=== PATIENT | male | born 2000 | race Hispanic/Latino ===

== ENCOUNTER 2021-07-30 21:17 | Emergency (ER) | payer OTHER ==
[2021-07-30 23:17] LABS: Absolute Lymphocytes (CBC) 2.1 K/uL (0.7-4.9); Hematocrit 44.6 % (39.6-49.0); MPV 7.2 fL (7.6-11.3); RBC Red Blood Cell Count 4.91 M/uL (4.33-5.43)
[2021-07-30 23:27] LABS: ALT/SGPT 31 U/L (12-78); AST/SGOT 17 U/L (15-37); Albumin 4.2 g/dL (3.4-5.0); Alkaline Phosphatase 86 U/L (45-117); BUN Blood Urea Nitrogen 15 mg/dL (7-18); Bicarbonate 27 mmol/L (21-32); Bilirubin Total 0.3 mg/dL (0.2-1.0); Glucose Level 102 mg/dL (74-106); Lipase 122 U/L (73-393); Potassium 3.8 mmol/L (3.5-5.1); Protein, Total 7.9 g/dL (6.4-8.2); Sodium Level 139 mmol/L (136-145)
[2021-07-30 23:31] LABS: Bilirubin Direct < 0.1 mg/dL (0-0.2)
--- NOTE | 2021-07-31 02:45 | ER ---
Nurse's Notes [facility] Name: Rossy Zamudio Age: 21 yrs Sex: Male : 2000 Arrival Date: 07/30/2021 Time: 21:20 Bed 17 Private MD: Diagnosis: Upper abdominal pain, unspecified Presentation: 07/30 21:43 Chief complaint: Patient states: "For the past 2 weeks, every time I eat I throw up. My ab2 stomach hurts too." Pt c/o N/V/D and abdominal pain in all 4 quadrants. Coronavirus screen: Vaccine status: Patient reports receiving the 2nd dose of the covid vaccine. Client denies travel out of the [place] in the last 14 days. At this time, the client does not indicate any symptoms associated with coronavirus-19. Coronavirus screen: diarrhea, nausea, vomiting. Client presents with at least one sign or symptom that may indicate coronavirus-19. Standard/surgical mask placed on the client. Provider contacted for isolation considerations. Ebola Screen: Patient negative for fever greater than or equal to 101.5 degrees Fahrenheit, and additional compatible Ebola Virus Disease symptoms Patient denies exposure to infectious person. Patient denies travel to an Ebola-affected area in the 21 days before illness onset. No symptoms or risks identified at this time. Initial Sepsis Screen: Does the patient meet any 2 criteria? No. Patient's initial sepsis screen is negative. Does the patient have a suspected source of infection? No. Patient's initial sepsis screen is negative. Risk Assessment: Do you want to hurt yourself or someone else? Patient reports no desire to harm self or others. Onset of symptoms is unknown. 21:43 Method Of Arrival: Ambulatory ab2 21:43 Acuity: STIVEN 3 ab2 Triage Assessment: 21:46 General: Appears in no apparent distress. comfortable, Behavior is calm, cooperative, ab2 appropriate for age. Pain: Complains of pain in abdomen. GI: Reports lower abdominal pain, upper abdominal pain, diarrhea, intolerance of fluids, intolerance of food, nausea, vomiting. Historical: - Allergies: 21:46 Ibuprofen; ab2 - PMHx: 21:46 None; ab2 - PSHx: 21:46 None; ab2 - Immunization history:: Adult Immunizations up to date. - Social history:: Smoking status: Patient denies any tobacco usage or history of. Screenin:20 Abuse screen: Denies threats or abuse. Nutritional screening: No deficits noted. sv1 Tuberculosis screening: No symptoms or risk factors identified. Fall Risk None identified. Assessment: 07/31 00:43 GI: Abdomen is flat. sv1 00:44 Reassessment: The patient is resting quietly. No acute abd distress. . sv1 Vital Signs: 07/30 21:43 BP 148 / 92; Pulse 97; Resp 18; Temp 98.8(TE); Pulse Ox 99% ; Weight 81.65 kg; Height 5 ab2 ft. 6 in. (167.64 cm); Pain 3/10; 22:20 BP 143 / 86 LA Sitting (auto/); Pulse 87 MON; Resp 16 S; Temp 97.8; Pulse Ox 100% on sv1 R/A; Weight 81.65 kg; Height 5 ft. 1 in. (154.94 cm); Pain 2/10; 07/31 00:39 BP 142 / 65 LA Sitting (auto/reg); Pulse 88 MON; Resp 16 S; Pulse Ox 98% on R/A; sv1 03:02 BP 106 / 66 LA Supine (auto/reg); Pulse 109 MON; Resp 16 S; Temp 97.9(O); Pulse Ox 99% sv1 on R/A; Pain 2/10; 07/30 22:20 Body Mass Index 34.01 (81.65 kg, 154.94 cm) sv1 ED Course: 07/30 21:20 Patient arrived in ED. ja2 21:26 Bessy Pierce FNP-C [facility]. kb 21:26 Stuart Pringle MD is Attending Physician. kb 21:46 Triage completed. ab2 21:46 Arm band placed on right wrist. ab2 22:07 Beto Phillips, BERT is Primary Nurse. sv1 22:20 Patient has correct armband on for positive identification. Placed in gown. Bed in low sv1 position. Call light in reach. Side rails up X2. 23:00 CBC with Diff Sent. sv1 23:00 Hepatic Function Sent. sv1 23:00 Basic Metabolic Panel Sent. sv1 23:00 Lipase Sent. sv1 07/31 00:51 US Abdomen Limited In Process Unspecified. EDMS 03:04 No provider procedures requiring assistance completed. IV discontinued. sv1 Administered Medications: No medications were administered Outcome: 02:45 Discharge ordered by MD. marie 03:04 Discharged to home ambulatory. sv1 03:04 Condition: good 03:04 Discharge instructions given to patient, Prescriptions given X 2. 03:05 Patient left the ED. sv1 Signatures: Dispatcher [employer] EDID Bessy Pierce, BRENTC RUBBER PRESS OPERATOR-Melanie Graham Steven, RN RN sv1 Aamir Ho2 Corrections: (The following items were deleted from the chart) 07/30 21:46 21:46 Allergies: No Known Allergies; ab2 ab2
--- NOTE | 2021-07-31 02:45 | EDPHYS ---
Physician Documentation [facility] Name: Rossy Zamudio Age: 21 yrs Sex: Male : 2000 Arrival Date: 07/30/2021 Time: 21:20 Bed 17 Private MD: ED Physician Stuart Pringle HPI: 07/30 22:11 This 21 yrs old Male presents to ER via Ambulatory with complaints of Nausea/Vomiting, kb Abdominal Pain. 22:11 The patient presents to the emergency department with nausea, vomiting, diarrhea, kb abdominal pain. Onset: The symptoms/episode began/occurred 2 week(s) ago. Possible causes: unknown. The symptoms are aggravated by food , The symptoms are alleviated by nothing. Associated signs and symptoms: Pertinent positives: abdominal pain, diarrhea, nausea, vomiting. Severity of symptoms: At their worst the symptoms were moderate in the emergency department the symptoms are unchanged. The patient has not experienced similar symptoms in the past. The patient has not recently seen a physician. 22:11 Pt reports n/v/d and upper abd pain that has been intermittent for 2 weeks. States the kb pain and nausea comes on after eating. Denies fever/chills. Historical: - Allergies: 21:46 Ibuprofen; ab2 - PMHx: 21:46 None; ab2 - PSHx: 21:46 None; ab2 - Immunization history:: Adult Immunizations up to date. - Social history:: Smoking status: Patient denies any tobacco usage or history of. ROS: 22:10 Constitutional: Negative for fever, chills, and weight loss. kb 22:10 Abdomen/GI: Positive for abdominal pain, nausea, vomiting, and diarrhea, Negative for constipation. 22:10 All other systems are negative. Exam: 22:10 Constitutional: This is a well developed, well nourished patient who is awake, alert, kb and in no acute distress. Head/Face: Normocephalic, atraumatic. ENT: Moist Mucous membranes Cardiovascular: Regular rate and rhythm with a normal S1 and S2. No gallops, murmurs, or rubs. No pulse deficits. Respiratory: Respirations even and unlabored. No increased work of breathing. Talking in full sentences Skin: Warm, dry with normal turgor. Normal color. MS/ Extremity: Pulses equal, no cyanosis. Neurovascular intact. Full, normal range of motion. Neuro: Awake and alert, GCS 15, oriented to person, place, time, and situation. Moves all extremities. Normal gait. Psych: Awake, alert, with orientation to person, place and time. Behavior, mood, and affect are within normal limits. 22:10 Abdomen/GI: Inspection: abdomen appears normal, Bowel sounds: normal, in all quadrants, Palpation: soft, in all quadrants, mild abdominal tenderness, in the right upper quadrant. Vital Signs: 21:43 BP 148 / 92; Pulse 97; Resp 18; Temp 98.8(TE); Pulse Ox 99% ; Weight 81.65 kg; Height 5 ab2 ft. 6 in. (167.64 cm); Pain 08/12; 22:20 BP 143 / 86 LA Sitting (auto/); Pulse 87 MON; Resp 16 S; Temp 97.8; Pulse Ox 100% on sv1 R/A; Weight 81.65 kg; Height 5 ft. 1 in. (154.94 cm); Pain 07/15; 07/31 00:39 BP 142 / 65 LA Sitting (auto/reg); Pulse 88 MON; Resp 16 S; Pulse Ox 98% on R/A; sv1 03:02 BP 106 / 66 LA Supine (auto/reg); Pulse 109 MON; Resp 16 S; Temp 97.9(O); Pulse Ox 99% sv1 on R/A; Pain 07/15; 07/30 22:20 Body Mass Index 34.01 (81.65 kg, 154.94 cm) sv1 MDM: 07/30 21:51 Patient medically screened. 22:01 Data reviewed: vital signs, nurses notes. Data interpreted: Pulse oximetry: on room air kb is 99 %. Interpretation: normal. 07/31 02:42 Counseling: I had a detailed discussion with the patient and/or guardian regarding: the historical points, exam findings, and any diagnostic results supporting the discharge/admit diagnosis, lab results, radiology results, the need for outpatient follow up, a general surgeon, a lumber tailer, to return to the emergency department if symptoms worsen or persist or if there are any questions or concerns that arise at home. 02:44 Data reviewed: I have discussed the patient's presentation/case with the attending Emergency Department Physician;. 02/25 21:52 Order name: Basic Metabolic Panel; Complete Time: 23:33 kb 07/30 21:52 Order name: CBC with Diff; Complete Time: 23:23 kb 07/30 21:52 Order name: Hepatic Function; Complete Time: 23:33 kb 07/30 21:52 Order name: Lipase; Complete Time: 23:33 kb 07/30 21:52 Order name: IV Saline Lock; Complete Time: 22:41 kb 07/30 22:10 Order name: US Abdomen Limited kb 07/30 21:52 Order name: Labs collected and sent; Complete Time: 22:42 kb Administered Medications: No medications were administered Disposition: 04:14 Co-signature as Attending Physician, Stuart Pringle MD. [email or web address] Disposition Summary: 07/31/21 02:45 Discharge Ordered Location: Home kb Condition: Stable kb Diagnosis - Upper abdominal pain, unspecified kb Followup: kb - With: Emergency Department - When: As needed - Reason: Worsening of condition Followup: kb - With: Private Physician - When: 2 - 3 days - Reason: Recheck today's complaints, Continuance of care, Re-evaluation by your physician Discharge Instructions: - Discharge Summary Sheet kb - Abdominal Pain, Adult, [id number] kb Forms: - Medication Reconciliation Form kb - Thank You Letter kb - Antibiotic Education kb - Prescription Opioid Use kb Prescriptions: - Zofran 4 mg Oral Tablet - take 1 tablet by ORAL route every 6 hours As needed; 20 tablet; Refills: 0, kb Product Selection Permitted - dicyclomine 20 mg Oral Tablet - take 1 tablet by ORAL route 4 times per day As needed; 20 tablet; Refills: 0, kb Product Selection Permitted Signatures: Dispatcher [employer] Bessy Nye, CLINICAL RESEARCH MANAGEMENT ASSOCIATE-C CLINICAL RESEARCH MANAGEMENT ASSOCIATE-Ckb Stuart Pringle MD MD [email or web address] Aamir Ho2 Corrections: (The following items were deleted from the chart) 07/30 21:46 21:46 Allergies: No Known Allergies; ab2 ab2
[2021-07-31 03:14] VITALS: BP 106/66; TEMP 97.9; O2SAT 99
--- NOTE | 2021-07-31 21:14 | RAD REPORT ---
EXAM DESCRIPTION: ABDOMINAL ULTRASOUND, LIMITED. CLINICAL HISTORY: Abdominal pain. COMPARISON: None. TECHNIQUE: Transabdominal high resolution grayscale sonographic evaluation of the abdomen performed with color flow. FINDINGS: The gallbladder is without stones or sludge. 4 mm echogenic nonshadowing focus along the r ight wall of the gallbladder compatible with color. Gallbladder wall is 2 mm. No pericholecystic flui d. Common bile duct is 4 mm. Normal liver size, contour and echogenicity as visualized. There is a 2 mm focus of pericholecystic fluid versus adjacent liver cyst. IMPRESSION: 1. 4 mm gallbladder polyp. 2. Trace pericholecystic fluid versus 2 mm adjacent liver cyst. Electronically signed by: Hazel aT DO 07/31/2021 1:29 AM PROJECT ADMINISTRATOR Due to temporary technical issues with the PACS/Fluency reporting system, reports are being signed by the in house radiologists without review as a courtesy to insure prompt reporting. The interpreting radiologist is fully responsible for the content of the report.
== END 2021-07-31 03:05 | disposition home or self-care (01) ==
LOC: ER 21:17
DX: R10.10 Upper abdominal pain, unspecified (principal); R11.2 Nausea with vomiting, unspecified; Z88.6 Allergy status to analgesic agent
CPT/HCPCS: 36415; 76705; 80048; 80076; 83690; 85025; 99283